=== PATIENT | female | born 1950 | race Caucasian/White ===

== ENCOUNTER → 2016-08-04 | Outpatient (CLI) | payer OTHER ==
[~2016-08-04] MED LIST: ACIPHEX20 MG PO; ADVAIR 250/501 DISK IH; ADVAIR 500/501 DISK IH; ADVAIR HFA120 INHAL2 IH; ALBUTEROL SULF8.5 GM IH; ASPIR 8181 M1 PO; ASPIR-LOW81 MG PO; ASPIR-TRIN325 M1 PO; ASPIRIN EC325 MG PO; ASPIRIN81 M1 PO; ATARAX,VISTARIL25 MG PO; ATARAX,VISTARIL50 MG PO; ATIVAN0.5 MG PO; AUGMENTIN875 MG PO; Aspirin E.C. PO; BACTRIM,SEPT1 TABLET PO; BENZONATATE200 MG PO; CARAFATE1 GM PO; CEFTIN250 MG PO; CELEXA10 MG PO; COMBIVENT RESPIM4 GM IH; COMPOUND CREAM TP; COZAAR100 MG PO; COZAAR50 MG PO; Ceftin PO; DAY TIME COLD1 EACH PO; DIFLUCAN150 MG PO; DIOVAN; DIOVAN80 MG PO; FUROSEMIDE40 MG PO; GLUCOPHAGE1000 MG PO; HYCODAN SYRUP480 ML PO; INSULIN; JANUVIA25 M1 PO; Januvia PO; LANTUS 10100 UNITS/ SC; LANTUS 3 M100 UNITS1 SC; LEVOFLOXACIN500 MG PO; LEXAPRO10 MG PO; LIPITOR40 MG PO; MECLIZINE HCL25 MG PO; METFORMIN HCL500 MG PO; METOPROLOL SUCC25 MG PO; NITROSTAT0.4 MG SL; NOHOMEMEDS; NORVASC2.5 MG PO; NORVASC5 MG PO; NYQUIL D COLD295 ML PO; ONGLYZA2.5 MG PO; PANTOPRAZOLE SO40 MG PO; PREDNISONE20 MG PO; PROVENTIL,2.5 MG/3 M IH; SINGULAIR10 MG PO; SYMBICORT60 INHALA1 IH; TERBINAFINE HC250 MG PO; TOPROL XL25 MG PO; VENTOLIN HFA18 GM IH; VICODIN 5-3001 EACH PO; VISTARIL50 M1 PO; ZOLOFT50 MG PO; ZYRTEC10 M3 PO
== END | disposition home or self-care (01) ==
LOC: RAD 12:20
DX: Z01.818 Encounter for other preprocedural examination (principal); J45.40 Moderate persistent asthma, uncomplicated
CPT/HCPCS: 71020

== ENCOUNTER 2016-08-14 05:16 | Day surgery (SDC) | payer OTHER ==
[~2016-08-14] VITALS: Ht 157.5 cm; Wt 71.2 kg
[2016-08-14 06:03] VITALS: BP 148/79
[2016-08-14 06:30] LABS: POINT-OF-CARE METER ID UU14174212
[2016-08-14 09:15] VITALS: BP 141/77
[2016-08-14 09:51] VITALS: BP 134/70
== END 2016-08-14 10:00 | disposition home or self-care (01) ==
LOC: SDC
PROVIDERS: Obstetrics & Gynecology
DX: C54.1 Malignant neoplasm of endometrium (principal); L57.0 Actinic keratosis; N84.0 Polyp of corpus uteri; I10 Essential (primary) hypertension; J44.9 Chronic obstructive pulmonary disease, unspecified; K21.9 Gastro-esophageal reflux disease without esophagitis; J45.909 Unspecified asthma, uncomplicated; E11.9 Type 2 diabetes mellitus without complications; Z86.73 Personal history of transient ischemic attack (TIA), and cerebral infarction without residual deficits; Z79.51 Long term (current) use of inhaled steroids; Z79.82 Long term (current) use of aspirin
CPT/HCPCS: 82948; 88305; J0690; J1815; J1885; J2250; J3010

== ENCOUNTER 2016-09-22 08:05 | Inpatient (IN) | payer OTHER ==
[~2016-09-22] VITALS: Ht 160 cm; Wt 71.2 kg
[2016-09-22 09:13] VITALS: BP 160/77
[2016-09-22 09:19] LABS: POINT-OF-CARE METER ID UU14174212
[2016-09-22 12:33] LABS: POINT-OF-CARE METER ID UU13113675
[2016-09-22 15:07] VITALS: BP 162/84
[2016-09-22 15:52] LABS: HEMATOCRIT 33.4 % (36.0-46.0); MCH 27.9 PG (29.0-34.0); MCHC 30.5 G/DL (30.0-36.0); MCV 91.5 FL (83-99); PLATELET COUNT 187 K/uL (156-360); RBC DIS.WIDTH-CV 13.4 % (11.8-14.6); RBC DIS.WIDTH-SD 44.8 % (39-53); RED BLOOD COUNT 3.65 M/uL (3.80-5.20)
[2016-09-22 15:59] LABS: WHITE BLOOD COUNT 9.8 K/uL (4.1-10.2)
[2016-09-22 16:15] LABS: ANION GAP 6 MEQ/L (2-14); CHLORIDE 109 MEQ/L (99-109); GFR ESTIMATE (CALCULATED) 53 mL/min/; GLUCOSE 200 mg/dL (70-99); SAMPLE HEMOLYSIS CHECK 0; SAMPLE ICTERIC CHECK 0; SAMPLE LIPEMIA CHECK 0; SODIUM 135 MEQ/L (136-147); UREA NITROGEN (BUN) 22 mg/dL (9-23)
[2016-09-22 18:23] VITALS: BP 156/72
[2016-09-22 19:54] VITALS: BP 174/81
[2016-09-22 23:35] VITALS: BP 145/82
[2016-09-23 03:43] VITALS: BP 142/75
[2016-09-23 06:54] LABS: HEMATOCRIT 30.5 % (36.0-46.0); MCH 28.1 PG (29.0-34.0); MCHC 30.8 G/DL (30.0-36.0); MCV 91.3 FL (83-99); MEAN PLAT.VOLUME 9.9 uM^3 (9.5-12.4); PLATELET COUNT 180 K/uL (156-360); RBC DIS.WIDTH-CV 13.6 % (11.8-14.6); RBC DIS.WIDTH-SD 45.4 % (39-53); RED BLOOD COUNT 3.34 M/uL (3.80-5.20)
[2016-09-23 07:20] VITALS: BP 176/84
[2016-09-23 07:20] LABS: ANION GAP 9 MEQ/L (2-14); CHLORIDE 107 MEQ/L (99-109); GFR ESTIMATE (CALCULATED) 48 mL/min/; GLUCOSE 122 mg/dL (70-99); POTASSIUM 4.5 MEQ/L (3.7-5.4); SAMPLE HEMOLYSIS CHECK 0; SAMPLE ICTERIC CHECK 0; SAMPLE LIPEMIA CHECK 0; SODIUM 139 MEQ/L (136-147); UREA NITROGEN (BUN) 21 mg/dL (9-23)
[2016-09-23 11:30] VITALS: BP 140/79
[2016-09-23 11:56] LABS: POINT-OF-CARE METER ID UU14162508
[2016-09-23 16:15] VITALS: BP 147/72
[2016-09-23 19:43] VITALS: BP 136/66
[2016-09-23 23:14] LABS: POINT-OF-CARE METER ID UU14162508
[2016-09-23 23:50] VITALS: BP 138/66
[2016-09-24 03:58] VITALS: BP 159/84
[2016-09-24 05:14] LABS: POINT-OF-CARE METER ID UU14162508
[2016-09-24 06:54] LABS: HEMATOCRIT 30.3 % (36.0-46.0); MCH 28.5 PG (29.0-34.0); MCHC 31.4 G/DL (30.0-36.0); PLATELET COUNT 162 K/uL (156-360); RBC DIS.WIDTH-CV 13.6 % (11.8-14.6); RBC DIS.WIDTH-SD 45.8 % (39-53); RED BLOOD COUNT 3.33 M/uL (3.80-5.20); WHITE BLOOD COUNT 7.8 K/uL (4.1-10.2)
[2016-09-24 07:21] LABS: ANION GAP 8 MEQ/L (2-14); CHLORIDE 107 MEQ/L (99-109); GFR ESTIMATE (CALCULATED) 40 mL/min/; GLUCOSE 115 mg/dL (70-99); POTASSIUM 4.2 MEQ/L (3.7-5.4); SAMPLE HEMOLYSIS CHECK 0; SAMPLE ICTERIC CHECK 0; SAMPLE LIPEMIA CHECK 0; SODIUM 140 MEQ/L (136-147); UREA NITROGEN (BUN) 23 mg/dL (9-23)
[2016-09-24 07:45] VITALS: BP 179/81
[2016-09-24] MEDS ORDERED: TRAMADOL HCL50 MG PO (09:34)
[2016-09-24 11:04] VITALS: BP 147/80
== END 2016-09-24 11:28 | disposition home or self-care (01) | DRG 735 ==
LOC: 2SOUTH → 2EASTP 14:12
PROVIDERS: Obstetrics & Gynecology Gynecologic Oncology
DX: C54.1 Malignant neoplasm of endometrium (principal); E11.9 Type 2 diabetes mellitus without complications
CPT/HCPCS: 36415; 80048; 82948; 85027; 86850; 86900; 86901; 86920; 88305; 88309; 94640; 94640 76; 94799; 99202; J0131; J0360; J1100; J1170; J1580; J1650; J1815; J1885; J2250; J2270; J2405; J2710; J2765; J3010; J7050; J7120; S0030

== ENCOUNTER 2016-12-21 09:13 | Observation (INO) | payer OTHER ==
[~2016-12-21] VITALS: Ht 162.6 cm; Wt 72.0 kg
[~2016-12-21 09:13] MED LIST changes: +TRAMADOL HCL50 MG PO
[2016-12-21 10:20] LABS: HEMATOCRIT 35.7 % (36.0-46.0); MCH 28.1 PG (29.0-34.0); MCHC 31.7 G/DL (30.0-36.0); MCV 88.8 FL (83-99); MEAN PLAT.VOLUME 10.4 uM^3 (9.5-12.4); PLATELET COUNT 184 K/uL (156-360); RBC DIS.WIDTH-CV 12.8 % (11.8-14.6); RED BLOOD COUNT 4.02 M/uL (3.80-5.20); WHITE BLOOD COUNT 8.3 K/uL (4.1-10.2)
[2016-12-21 10:32] LABS: CHLORIDE 107 mEq/L (99-109); POTASSIUM 4.6 mEq/L (3.7-5.4); SODIUM 136 mEq/L (136-147)
[2016-12-21 10:34] LABS: GLUCOSE 134 mg/dL (70-99)
[2016-12-21 10:35] LABS: ANION GAP 9 MEQ/L (2-14)
[2016-12-21 10:37] LABS: GFR ESTIMATE (CALCULATED) 43 mL/min/
[2016-12-21 10:38] LABS: UREA NITROGEN (BUN) 34 mg/dL (9-23)
[2016-12-21 10:44] LABS: TROP-I INTERPRETATION NEGATIVE; TROPONIN-I 0.01 ng/mL (0.0-0.30)
[2016-12-21 11:30] LABS: POINT-OF-CARE METER ID UU13113702
[2016-12-21] MEDS ORDERED: FLONASE16 G1 BOTH NARES (11:42)
[2016-12-21] MEDS ORDERED: KENALOG,ARISTOC80 GM TP (11:42)
[2016-12-21 12:17] VITALS: BP 149/79
[2016-12-21 15:45] VITALS: BP 132/71
[2016-12-21 17:26] LABS: POINT-OF-CARE METER ID UU14162513
[2016-12-21 17:35] LABS: TROP-I INTERPRETATION NEGATIVE; TROPONIN-I < 0.01 ng/mL (0.0-0.30)
[2016-12-21 20:00] VITALS: BP 133/89
[2016-12-22] VITALS: BP 112/58
[2016-12-22 00:15] LABS: TROP-I INTERPRETATION NEGATIVE; TROPONIN-I 0.01 ng/mL (0.0-0.30)
[2016-12-22 05:30] VITALS: BP 141/66
[2016-12-22 06:03] LABS: HEMATOCRIT 32.7 % (36.0-46.0); MCH 28.4 PG (29.0-34.0); MCHC 31.2 G/DL (30.0-36.0); MCV 91.1 FL (83-99); MEAN PLAT.VOLUME 10.4 uM^3 (9.5-12.4); PLATELET COUNT 162 K/uL (156-360); RBC DIS.WIDTH-CV 13.2 % (11.8-14.6); RBC DIS.WIDTH-SD 43.7 % (39-53); RED BLOOD COUNT 3.59 M/uL (3.80-5.20); WHITE BLOOD COUNT 6.1 K/uL (4.1-10.2)
[2016-12-22 06:56] LABS: ANION GAP 8 MEQ/L (2-14); CHLORIDE 106 MEQ/L (99-109); GFR ESTIMATE (CALCULATED) 40 mL/min/; SAMPLE HEMOLYSIS CHECK 0; SAMPLE ICTERIC CHECK 0; SAMPLE LIPEMIA CHECK 0; SODIUM 137 MEQ/L (136-147); UREA NITROGEN (BUN) 37 mg/dL (9-23)
[2016-12-22 07:10] LABS: GLUCOSE 75 mg/dL (70-99)
[2016-12-22 07:12] VITALS: BP 125/62
[2016-12-22 08:14] LABS: POINT-OF-CARE METER ID UU14162513
[2016-12-22] MEDS ORDERED: NITROSTAT0.4 MG SL (09:55)
== END 2016-12-22 11:11 | disposition home or self-care (01) ==
LOC: EME 09:13 → EDOF 11:24 → 5WEST 11:24
PROVIDERS: Hospitalist; Internal Medicine
DX: R07.89 Other chest pain (principal); I10 Essential (primary) hypertension; J44.9 Chronic obstructive pulmonary disease, unspecified; J45.909 Unspecified asthma, uncomplicated; E11.9 Type 2 diabetes mellitus without complications; E78.5 Hyperlipidemia, unspecified; K21.9 Gastro-esophageal reflux disease without esophagitis; Z86.73 Personal history of transient ischemic attack (TIA), and cerebral infarction without residual deficits; Z87.891 Personal history of nicotine dependence
CPT/HCPCS: 71020; 80048; 82948; 84484; 85027; 93005; 94640; 94640 76; 99202; 99281; 99285; G0378; J1644; J3010; J7040

== ENCOUNTER 2017-05-19 18:32 | Emergency (ER) | payer OTHER ==
[~2017-05-19] VITALS: Ht 160 cm; Wt 76.7 kg
[~2017-05-19 18:32] MED LIST changes: +FLONASE16 G1 BOTH NARES; +KENALOG,ARISTOC80 GM TP
[2017-05-19] MEDS ORDERED: FLEXERIL10 MG PO (20:16)
[2017-05-19] MEDS ORDERED: NAPROSYN500 MG PO (20:16)
[2017-05-19 21:14] VITALS: BP 123/66
== END 2017-05-19 21:19 | disposition home or self-care (01) ==
LOC: EME 18:32
DX: S16.1XXA Strain of muscle, fascia and tendon at neck level, initial encounter (principal); V49.40XA Driver injured in collision with unspecified motor vehicles in traffic accident, initial encounter; J44.9 Chronic obstructive pulmonary disease, unspecified; E11.9 Type 2 diabetes mellitus without complications; Z79.84 Long term (current) use of oral hypoglycemic drugs; E78.5 Hyperlipidemia, unspecified; Z79.82 Long term (current) use of aspirin; I10 Essential (primary) hypertension; K21.9 Gastro-esophageal reflux disease without esophagitis; F41.9 Anxiety disorder, unspecified; F32.9 Major depressive disorder, single episode, unspecified; Z86.73 Personal history of transient ischemic attack (TIA), and cerebral infarction without residual deficits; Z88.0 Allergy status to penicillin; Z87.891 Personal history of nicotine dependence
CPT/HCPCS: 72050; 99281; 99284

== ENCOUNTER 2017-07-14 19:30 | Emergency (ER) | payer OTHER ==
[~2017-07-14] VITALS: Ht 160 cm; Wt 67.6 kg
[~2017-07-14 19:30] MED LIST changes: +FLEXERIL10 MG PO; +NAPROSYN500 MG PO
[2017-07-14] MEDS ORDERED: PREDNISONE20 MG PO (20:18)
[2017-07-14 20:48] VITALS: BP 149/83
== END 2017-07-14 20:49 | disposition home or self-care (01) ==
LOC: EME 19:30
DX: J45.901 Unspecified asthma with (acute) exacerbation (principal); J06.9 Acute upper respiratory infection, unspecified; E10.9 Type 1 diabetes mellitus without complications; J44.9 Chronic obstructive pulmonary disease, unspecified; E78.5 Hyperlipidemia, unspecified; I10 Essential (primary) hypertension; K21.9 Gastro-esophageal reflux disease without esophagitis; F41.9 Anxiety disorder, unspecified; F32.9 Major depressive disorder, single episode, unspecified; Z79.84 Long term (current) use of oral hypoglycemic drugs; Z87.891 Personal history of nicotine dependence; Z92.3 Personal history of irradiation; Z85.9 Personal history of malignant neoplasm, unspecified; Z86.73 Personal history of transient ischemic attack (TIA), and cerebral infarction without residual deficits; Z90.49 Acquired absence of other specified parts of digestive tract; Z90.89 Acquired absence of other organs; Z88.5 Allergy status to narcotic agent; Z88.0 Allergy status to penicillin
CPT/HCPCS: 99281; 99284; J7512

== ENCOUNTER → 2018-01-31 | Outpatient (CLI) | payer OTHER ==
[~2018-01-31] MED LIST changes: +EUCRISA60 GM TP; +GOLYTELY SOLU4000 ML PO; +OTEZLA30 MG PO; +VITAMIN D5000 UNI1 PO
[2018-02-02 13:12] LABS: Flow Clinical Information NOT PROVIDED (()); Flow Number of Markers 22 (()); Flow Spec Viability 78 % (())
== END | disposition home or self-care (01) ==
LOC: OPR 08:00 → RAD 08:50 → EDSTATUS 09:00 → OPR 09:00
PROVIDERS: Internal Medicine Hematology & Oncology
PROC: 07B63ZX Excision of Left Axillary Lymphatic, Percutaneous Approach, Diagnostic (ICD-10-PCS; principal; 2018-01-31)
DX: D47.2 Monoclonal gammopathy (principal)
CPT/HCPCS: 76942; 88305